=== PATIENT | female | born 1955 | race Caucasian/White ===

== ENCOUNTER 2023-05-28 13:40 | Emergency (ER) | payer MEDICARE, MEDICAID ==
[~2023-05-28] VITALS: Ht 154.9 cm; Wt 66.0 kg
[2023-05-28 13:41] VITALS: O2SAT 97
[2023-05-28 15:14] LABS: EOSINOPHILS % 1.6 % (0.0-5.0); HEMATOCRIT. 44.7 % (36.0-48.0); LYMPHOCYTES % 32.1 % (20.0-50.0); MEAN CORPUSCULAR HEMOGLOBIN 30.9 pg (28.0-32.0); MEAN CORPUSCULAR HGB CONC 33.7 g/dL (31.0-37.0); MEAN CORPUSCULAR VOLUME 91.9 fL (81.0-99.0); MEAN PLATELET VOLUME 8.3 fl (7.4-10.4); NEUTROPHILS % 56.3 % (40.0-76.0); PLATELET 262 x1000/uL (130-400); RED BLOOD CELL COUNT 4.86 mill/uL (4.2-5.4); RED CELL DISTRIBUTION WIDTH 14.2 % (11.6-14.6); WHITE BLOOD COUNT 6.6 x1000/uL (4.5-11.0)
[2023-05-28 15:22] LABS: PROTHROMBIN TIME 10.3 sec (9.6-11.0)
[2023-05-28 15:23] LABS: CHLORIDE 104 mEq/L (98-107); INDEX HEMOLYSI 1 (1-3); INDEX ICTERIC 1 (1-4); INDEX LIPEMIC 1 (1-3); POTASSIUM 4.3 mEq/L (3.5-5.1); SODIUM 135 mEq/L (136-145)
[2023-05-28 15:30] LABS: ALANINE AMINOTRANSFERASE 33 IU/L (13-61); ALBUMIN 3.5 g/dL (3.4-5.0); ASPARTATE AMINOTRANSFERASE 18 IU/L (15-37); BILIRUBIN TOTAL 0.7 mg/dL (0.1-1.0); CALCIUM 8.7 mg/dL (8.5-10.1); CARBON DIOXIDE 26 mEq/L (21-32); CREATININE 0.9 mg/dL (0.6-1.3); GLUCOSE 251 mg/dL (70-105); PROTEIN TOTAL 8.9 g/dL (6.0-8.3); UREA NITROGEN BLOOD 19 mg/dL (7-21)
[2023-05-28] MEDS ORDERED: ONDANSETRON HCL 4MG/2ML INJ IV ONE (18:30)
[2023-05-28] MEDS ORDERED: KETOROLAC 30MG/ML VIAL IV ONE (19:30)
[2023-05-28 20:19] LABS: CLARITY URINE CLEAR (CLEAR); COLOR URINE YELLOW (YELLOW); GLUCOSE URINE 3+ (NEGATIVE); KETONES URINE NEGATIVE (NEGATIVE); LEUKOCYTE ESTERASE URINE NEGATIVE (NEGATIVE); NITRITE URINE NEGATIVE (NEGATIVE); OCCULT BLOOD URINE NEGATIVE (NEGATIVE); PROTEIN URINE NEGATIVE (NEGATIVE); SPECIFIC GRAVITY URINE 1.064 (1.005-1.030); UROBILINOGEN URINE 0.2 E.U./dL (0.2-1.0)
[2023-05-28 20:22] LABS: RBC URINE 0-2 /hpf (0-2); SQUAMOUS EPITHELIAL CELL URINE 1+ /lpf (RARE/1+)
[2023-05-28 20:35] LABS: BACTERIA URINE 1+; WBC URINE 0-2 /hpf (0-2); YEAST URINE FEW
[2023-05-28] MEDS ORDERED: IBUP-2028 MT (20:43)
[2023-05-28] MEDS ORDERED: MORPHINE SULFATE 4 MG/ML CPJ (NOT FOR IM USE) IV NR (20:45)
[2023-05-28] MEDS ORDERED: ONDANSETRON HCL 4MG/2ML INJ IV NR (20:45)
[2023-05-28] MEDS: MORPHINE SULFATE 4 MG/ML CPJ (NOT FOR IM USE) IV ONE ×2 (21:01→21:03)
[2023-05-28 21:03] VITALS: BP 177/78; PULSE 98; RESP 18
[2023-05-28 21:22] VITALS: TEMP 98.2
== END 2023-05-28 21:46 | disposition home or self-care (01) ==
LOC: ER 13:40
DX: R10.31 Right lower quadrant pain (principal); D21.9 Benign neoplasm of connective and other soft tissue, unspecified; E11.9 Type 2 diabetes mellitus without complications; E78.00 Pure hypercholesterolemia, unspecified
CPT/HCPCS: 99285; 74177; 96374; 96375; 80053; 81003; 83690; 85025; 85610; 36415; J1885; J2405; J2270

== ENCOUNTER 2024-04-26 08:27 | Emergency (ER) | payer MEDICARE, MEDICAID ==
[~2024-04-26] VITALS: Ht 152.4 cm; Wt 59.0 kg
[~2024-04-26 08:27] MED LIST: IBUP-2028 MT
[2024-04-26 08:33] VITALS: O2SAT 98
[2024-04-26 09:28] LABS: BASOPHILS % 0.6 % (0.0-2.0); EOSINOPHILS % 0.5 % (0.0-5.0); HEMATOCRIT. 38.9 % (36.0-48.0); HEMOGLOBIN. 13.1 g/dL (12.0-16.0); LYMPHOCYTES % 15.5 % (20.0-50.0); MEAN CORPUSCULAR HEMOGLOBIN 31.4 pg (28.0-32.0); MEAN CORPUSCULAR HGB CONC 33.6 g/dL (31.0-37.0); MEAN CORPUSCULAR VOLUME 93.6 fL (81.0-99.0); MEAN PLATELET VOLUME 8.5 fl (7.4-10.4); MONOCYTES % 3.7 % (2.0-8.0); NEUTROPHILS % 79.7 % (40.0-76.0); PLATELET 286 x1000/uL (130-400); RED BLOOD CELL COUNT 4.15 mill/uL (4.2-5.4); RED CELL DISTRIBUTION WIDTH 14.2 % (11.6-14.6); WHITE BLOOD COUNT 6.4 x1000/uL (4.5-11.0)
[2024-04-26 09:34] LABS: POTASSIUM 4.3 mEq/L (3.5-5.1)
[2024-04-26 09:35] LABS: CALCIUM 9.1 mg/dL (8.7-10.4)
[2024-04-26 09:40] LABS: CREATININE 1.1 mg/dL (0.6-1.0)
[2024-04-26 09:56] LABS: CLARITY URINE CLEAR (CLEAR); COLOR URINE YELLOW (YELLOW); GLUCOSE URINE 1+ (NEGATIVE); KETONES URINE NEGATIVE (NEGATIVE); LEUKOCYTE ESTERASE URINE NEGATIVE (NEGATIVE); NITRITE URINE NEGATIVE (NEGATIVE); OCCULT BLOOD URINE NEGATIVE (NEGATIVE); PH URINE 5.5 (4.5-8.0); PROTEIN URINE 1+ (NEGATIVE); SPECIFIC GRAVITY URINE 1.024 (1.005-1.030); UROBILINOGEN URINE 0.2 E.U./dL (0.2-1.0)
[2024-04-26] MEDS: ONDANSETRON 4MG ODT PO ONE (10:01)
[2024-04-26 10:17] LABS: BACTERIA URINE 1+; RBC URINE 0-2 /hpf (0-2); SQUAMOUS EPITHELIAL CELL URINE 1+ /lpf (RARE/1+); WBC URINE 0-2 /hpf (0-2); YEAST URINE NONE SEEN
[2024-04-26 10:24] LABS: TROPONIN I HIGH SENSITIVITY < 4 ng/L (3.0-34)
[2024-04-26] MEDS: SODIUM CHLORIDE 0.9% 1,000 ML IV ONE (11:00)
[2024-04-26 11:27] LABS: TROPONIN I HIGH SENSITIVITY < 4 ng/L (3.0-34)
[2024-04-26] MEDS ORDERED: ONDA4TAB50 MT (12:12)
[2024-04-26 12:15] VITALS: BP 133/68; PULSE 71; RESP 16; TEMP 36.66960; O2SAT 100
== END 2024-04-26 14:17 | disposition home or self-care (01) ==
LOC: ER 08:41
DX: R11.2 Nausea with vomiting, unspecified (principal); R42 Dizziness and giddiness; E11.9 Type 2 diabetes mellitus without complications; E78.00 Pure hypercholesterolemia, unspecified; Z98.890 Other specified postprocedural states
CPT/HCPCS: 99284; 96360; 80048; 81003; 83690; 85025; 84484; 93005; 36415; Q0162; J7030

== ENCOUNTER 2024-12-08 16:03 | Emergency (ER) | payer MEDICARE, MEDICAID ==
[~2024-12-08] VITALS: Ht 152.4 cm; Wt 64.0 kg
[~2024-12-08 16:03] MED LIST changes: +ONDA4TAB50 MT
[2024-12-08 16:05] VITALS: O2SAT 98
[2024-12-08 16:44] VITALS: BP 165/82; PULSE 96; RESP 16; TEMP 36.8; O2SAT 100
[2024-12-08 17:02] LABS: BASOPHILS % 0.9 % (0.0-2.0); EOSINOPHILS % 1.5 % (0.0-5.0); HEMATOCRIT. 32.7 % (36.0-48.0); HEMOGLOBIN. 10.7 g/dL (12.0-16.0); LYMPHOCYTES % 31.8 % (20.0-50.0); MEAN CORPUSCULAR HEMOGLOBIN 30.7 pg (28.0-32.0); MEAN CORPUSCULAR HGB CONC 32.7 g/dL (31.0-37.0); MEAN CORPUSCULAR VOLUME 93.8 fL (81.0-99.0); MEAN PLATELET VOLUME 7.8 fl (7.4-10.4); MONOCYTES % 7.8 % (2.0-8.0); PLATELET 262 x1000/uL (130-400); RED BLOOD CELL COUNT 3.48 mill/uL (4.2-5.4); RED CELL DISTRIBUTION WIDTH 16.1 % (11.6-14.6); WHITE BLOOD COUNT 6.2 x1000/uL (4.5-11.0)
[2024-12-08 17:11] LABS: CHLORIDE 102 mEq/L (98-107); POTASSIUM 4.4 mEq/L (3.5-5.1); SODIUM 137 mEq/L (136-145)
[2024-12-08 17:12] LABS: CALCIUM 9.6 mg/dL (8.7-10.4); CARBON DIOXIDE 24 mEq/L (21-32)
[2024-12-08 17:17] LABS: CREATININE 0.9 mg/dL (0.6-1.0); GLUCOSE 130 mg/dL (70-105); TROPONIN I HIGH SENSITIVITY 4 ng/L (3.0-34); UREA NITROGEN BLOOD 18 mg/dL (9-23)
[2024-12-08 17:19] LABS: ALANINE AMINOTRANSFERASE 11 IU/L (10-49); ALBUMIN 3.3 g/dL (3.2-4.8); ASPARTATE AMINOTRANSFERASE 17 IU/L (<34); BILIRUBIN DIRECT 0.1 mg/dL (<=3.0)
[2024-12-08 17:20] LABS: BILIRUBIN TOTAL 0.6 mg/dL (0.1-1.0); PROTEIN TOTAL 10.7 g/dL (6.0-8.3)
[2024-12-08 18:28] LABS: CLARITY URINE CLEAR (CLEAR); COLOR URINE YELLOW (YELLOW); GLUCOSE URINE NEGATIVE (NEGATIVE); KETONES URINE NEGATIVE (NEGATIVE); LEUKOCYTE ESTERASE URINE NEGATIVE (NEGATIVE); NITRITE URINE NEGATIVE (NEGATIVE); OCCULT BLOOD URINE TRACE (NEGATIVE); PROTEIN URINE 2+ (NEGATIVE); SPECIFIC GRAVITY URINE 1.017 (1.005-1.030); UROBILINOGEN URINE 0.2 E.U./dL (0.2-1.0)
[2024-12-08 18:46] LABS: BACTERIA URINE NONE SEEN; RBC URINE 0-2 /hpf (0-2); SQUAMOUS EPITHELIAL CELL URINE FEW /lpf (RARE/1+); WBC URINE NONE SEEN /hpf (0-2)
== END 2024-12-08 21:54 | disposition left against medical advice (07) ==
LOC: ER 16:03
DX: R10.31 Right lower quadrant pain (principal); E11.9 Type 2 diabetes mellitus without complications; I10 Essential (primary) hypertension; Z79.899 Other long term (current) drug therapy
CPT/HCPCS: 36415; 80048; 80076; 81003; 84484; 85025; 86850; 86900; 93005; 99284